=== PATIENT | female | born 1955 | race Two or more races ===

== ENCOUNTER 2019-06-10 15:34 | Inpatient (IN) | payer MEDICARE, OTHER ==
[~2019-06-10] VITALS: Ht 165.1 cm; Wt 69.5 kg
[~2019-06-10 15:34] MED LIST: ACET-1304 PO; ALBU1SYP PO; ALBU2TAB4 PO; ASCO500T11 PO; BUDE0.253 IN; CYA100I PO; DEXT1SUS PO; DILT60TA27 PO; DIPH25CA66 PO; FLUT1SPR5; FURO1TAB33 PO; GABA-339 PO; GUAI600T23 PO; OMEP20TA PO; PRE1T PO; PSEU120T2 PO
[2019-06-10 16:16] LABS: Basophils # (auto) 0 uL; Basophils % (auto) 0.2 % (0.0-2.0); Eosinophils # (auto) 0 uL; Hematocrit 41.6 % (36.0-46.0); Hemoglobin 13.8 g/dL (12.2-16.2); Lymphocytes # (auto) 0.6 uL; Lymphocytes % (auto) 5.5 % (10.0-50.0); Mean Corpuscular Hemoglobin 29.6 pg (28.0-32.0); Mean Corpuscular Hgb Conc. 33.1 g/dL (32.0-36.0); Mean Corpuscular Volume 89.4 fL (80.0-100.0); Monocytes # (auto) 0.1 uL; Monocytes % (auto) 1.4 % (0.0-12.0); Neutrophils % (auto) 92.9 % (37.0-80.0); Platelet Count (auto) 238 10^3/uL (140-450); Red Blood Cells 4.65 10^6/uL (4.0-5.20); Red Cell Distribution Width 16.9 % (11.8-14.3); White Blood Cell 10.8 10^3/uL (4.4-10.8)
[2019-06-10] MEDS ORDERED: SODIUM CHLORIDE 0.9% 1,000 ML IV ONE (16:27)
[2019-06-10] MEDS ORDERED: ALBUTEROL SULF 2.5 MG/0.5ML(0.5%) NEB SOLN NEB ONE (16:30)
[2019-06-10] MEDS ORDERED: IPRATROPIUM BROM 0.5 MG/2.5ML INH SOL NEB ONE (16:30)
[2019-06-10] MEDS ORDERED: methylPREDNISolone SOD SUCC 125 MG/2 ML VL IV ONE (16:30)
[2019-06-10] MEDS ORDERED: cefTRIAXone 1GM/50ML D5W 50 ML IV ONE (16:30)
[2019-06-10 16:31] LABS: Alanine Aminotransferase 37 U/L (13-56); Albumin 3.3 g/dL (3.4-5.0); Anion Gap 6 (5-15); Blood Urea Nitrogen 14 mg/dL (7-18); Calcium 8.4 mg/dL (8.5-10.1); Carbon Dioxide 28 mmol/L (21-32); Chloride 106 mmol/L (98-107); Glucose 121 mg/dL (74-106); Potassium 3.8 mmol/L (3.5-5.1); Sodium 140 mmol/L (136-145)
[2019-06-10 16:36] LABS: Alkaline Phosphatase 129 U/L (45-117); Aspartate Aminotransferase 32 U/L (15-37); BUN/Creatinine Ratio 26.4; Bilirubin, Total 0.9 mg/dL (0.2-1.0); GFR African American 150 mL/min; GFR Non-African American 124 mL/min; Total Protein 6.5 g/dL (6.4-8.2)
[2019-06-10] MEDS ORDERED: HYDROcodone-ACET 5/325MG TAB PO PRN (18:45)
[2019-06-10] MEDS ORDERED: hydrALAZINE HCL 25 MG TAB PO PRN (18:45)
[2019-06-10] MEDS ORDERED: NITROGLYCERIN 0.4 MG SL TAB SL PRN (18:45)
[2019-06-10] MEDS ORDERED: MORPHINE SULF INJ 2 MG/ML SYRINGE 1ML IV PRN ×2 (18:45)
[2019-06-10 21:23] VITALS: BP 143/92
[2019-06-10] MEDS ORDERED: HYDR-4296 PO (21:34)
[2019-06-10] MEDS ORDERED: ATOR20TA PO (21:34)
[2019-06-10 22:00] VITALS: BP 150/80
[2019-06-10] MEDS: GUAIFENESIN 600 MG PO SCH (22:00)
[2019-06-10] MEDS: FLUTICASONE PROP NASAL SPR 0.05 % (50MCG) 16GM SCH (22:00)
[2019-06-10] MEDS: methylPREDNISolone SOD SUCC 40 MG/ML VL IV SCH (22:09)
[2019-06-10] MEDS: BUDESONIDE (INHALATION) 0.5 MG/2 ML NEB NEB SCH ×2 (22:10→22:39)
[2019-06-10] MEDS: IPRATROPIUM BROM 0.5 MG/2.5ML INH SOL NEB SCH ×2 (22:10→22:43)
[2019-06-10] MEDS: ALBUTEROL SULF 2.5 MG/0.5ML(0.5%) NEB SOLN NEB SCH ×2 (22:10→22:38)
[2019-06-10] MEDS: ATORVASTATIN 20 MG TAB PO SCH (22:10)
[2019-06-10] MEDS: GABAPENTIN 300 MG CAP PO SCH (22:10)
[2019-06-10 23:30] LABS: Urine Bacteria NONE SEEN /hpf (None Seen); Urine Blood Negative /uL (Negative); Urine Specific Gravity 1.022 (1.001-1.035); Urine WBC 1 /hpf (0 - 5)
[2019-06-11] MEDS: ACETAMINOPHEN 500 MG TAB PO PRN ×2 (05:34→15:02)
[2019-06-11 05:39] VITALS: BP 143/77
[2019-06-11] MEDS: ALBUTEROL SULF 2.5 MG/0.5ML(0.5%) NEB SOLN NEB SCH ×5 (06:07→22:00)
[2019-06-11] MEDS: IPRATROPIUM BROM 0.5 MG/2.5ML INH SOL NEB SCH ×5 (06:07→22:00)
[2019-06-11] MEDS: BUDESONIDE (INHALATION) 0.5 MG/2 ML NEB NEB SCH ×2 (06:09→22:00)
[2019-06-11 07:03] LABS: Basophils # (auto) 0 uL; Basophils % (auto) 0.1 % (0.0-2.0); Eosinophils # (auto) 0 uL; Lymphocytes # (auto) 0.9 uL; Lymphocytes % (auto) 9.8 % (10.0-50.0); Mean Corpuscular Hgb Conc. 32.5 g/dL (32.0-36.0); Mean Corpuscular Volume 89.5 fL (80.0-100.0); Monocytes # (auto) 0.1 uL; Monocytes % (auto) 1.2 % (0.0-12.0); Neutrophils # (auto) 7.8 uL; Neutrophils % (auto) 88.9 % (37.0-80.0); Nucleated Red Blood Cells % 0.1 %; Platelet Count (auto) 265 10^3/uL (140-450); Red Blood Cells 4.47 10^6/uL (4.0-5.20); Red Cell Distribution Width 16.8 % (11.8-14.3); White Blood Cell 8.8 10^3/uL (4.4-10.8)
[2019-06-11 07:42] LABS: BUN/Creatinine Ratio 26.1; Calcium 8.7 mg/dL (8.5-10.1); Potassium 4.8 mmol/L (3.5-5.1)
[2019-06-11 09:00] VITALS: BP 164/90
[2019-06-11] MEDS: GUAIFENESIN 600 MG PO SCH ×2 (10:00→22:00)
[2019-06-11] MEDS ORDERED: POTASSIUM EFFERVESENT TAB 25 MEQ PO SCH (10:00)
[2019-06-11] MEDS: methylPREDNISolone SOD SUCC 40 MG/ML VL IV SCH ×2 (10:39→22:01)
[2019-06-11] MEDS: FLUTICASONE PROP NASAL SPR 0.05 % (50MCG) 16GM SCH ×2 (10:40→22:00)
[2019-06-11] MEDS: GABAPENTIN 300 MG CAP PO SCH ×2 (10:41→22:07)
[2019-06-11] MEDS: dilTIAZem HCL 60 MG TAB PO SCH (10:41)
[2019-06-11] MEDS: FAMOTIDINE 20 MG TAB PO SCH (10:41)
[2019-06-11] MEDS: FUROSEMIDE 20 MG TAB PO SCH (10:41)
[2019-06-11 13:00] VITALS: BP 17/61
[2019-06-11] MEDS: ONDANSETRON HCL 4 MG/2 ML VIAL IV PRN ×2 (15:01→19:03)
[2019-06-11] MEDS ORDERED: guaiFENesin-DM 100/10mg/5ml SYR PO PRN (15:30)
[2019-06-11] MEDS ORDERED: AZITHROMYCIN 250 MG TAB PO ONE (15:30)
[2019-06-11 17:00] VITALS: BP 130/79
[2019-06-11] MEDS: hydrALAZINE HCL 25 MG TAB PO SCH ×2 (18:43→18:44)
[2019-06-11] MEDS: ATORVASTATIN 20 MG TAB PO SCH (22:05)
[2019-06-11 22:11] VITALS: BP 136/58
[2019-06-12] MEDS: ALBUTEROL SULF 2.5 MG/0.5ML(0.5%) NEB SOLN NEB SCH ×6 (02:34→22:32)
[2019-06-12] MEDS: IPRATROPIUM BROM 0.5 MG/2.5ML INH SOL NEB SCH ×6 (02:34→22:32)
[2019-06-12 05:17] VITALS: BP 117/70
[2019-06-12] MEDS: hydrALAZINE HCL 25 MG TAB PO SCH ×4 (05:58→22:51)
[2019-06-12] MEDS: BUDESONIDE (INHALATION) 0.5 MG/2 ML NEB NEB SCH ×2 (06:40→22:32)
[2019-06-12 09:35] VITALS: BP 141/86
[2019-06-12] MEDS: GUAIFENESIN 600 MG PO SCH ×2 (10:00→22:52)
[2019-06-12] MEDS: FLUTICASONE PROP NASAL SPR 0.05 % (50MCG) 16GM SCH ×2 (10:30→22:00)
[2019-06-12] MEDS: GABAPENTIN 300 MG CAP PO SCH ×2 (10:51→22:07)
[2019-06-12] MEDS: AZITHROMYCIN 250 MG TAB PO SCH (10:51)
[2019-06-12] MEDS: ONDANSETRON HCL 4 MG/2 ML VIAL IV PRN (10:52)
[2019-06-12] MEDS: FAMOTIDINE 20 MG TAB PO SCH (10:53)
[2019-06-12] MEDS: FUROSEMIDE 20 MG TAB PO SCH (10:54)
[2019-06-12] MEDS: dilTIAZem HCL 60 MG TAB PO SCH (10:55)
[2019-06-12] MEDS ORDERED: methylPREDNISolone SOD SUCC 125 MG/2 ML VL IV ONE (11:15)
[2019-06-12 13:00] VITALS: BP 148/93
[2019-06-12] MEDS ORDERED: LORazepam 0.5 MG TAB PO PRN (14:00)
[2019-06-12 17:25] VITALS: BP 122/70
[2019-06-12 20:00] VITALS: BP 122/70
[2019-06-12 22:00] VITALS: BP 141/79
[2019-06-12] MEDS: methylPREDNISolone SOD SUCC 40 MG/ML VL IV SCH (22:00)
[2019-06-12] MEDS: ATORVASTATIN 20 MG TAB PO SCH (22:07)
[2019-06-13 05:00] VITALS: BP 156/93
[2019-06-13] MEDS: ALBUTEROL SULF 2.5 MG/0.5ML(0.5%) NEB SOLN NEB SCH ×5 (06:30→22:36)
[2019-06-13] MEDS: IPRATROPIUM BROM 0.5 MG/2.5ML INH SOL NEB SCH ×5 (06:30→22:36)
[2019-06-13] MEDS: BUDESONIDE (INHALATION) 0.5 MG/2 ML NEB NEB SCH ×2 (06:31→22:36)
[2019-06-13 09:00] VITALS: BP 157/86
[2019-06-13] MEDS: GUAIFENESIN 600 MG PO SCH ×2 (10:00→21:47)
[2019-06-13] MEDS: FLUTICASONE PROP NASAL SPR 0.05 % (50MCG) 16GM SCH ×2 (10:39→21:46)
[2019-06-13] MEDS: methylPREDNISolone SOD SUCC 40 MG/ML VL IV SCH ×2 (10:39→21:46)
[2019-06-13] MEDS: dilTIAZem HCL 60 MG TAB PO SCH (10:40)
[2019-06-13] MEDS: FAMOTIDINE 20 MG TAB PO SCH (10:40)
[2019-06-13] MEDS: AZITHROMYCIN 250 MG TAB PO SCH (10:41)
[2019-06-13] MEDS: GABAPENTIN 300 MG CAP PO SCH ×2 (10:42→21:47)
[2019-06-13] MEDS: FUROSEMIDE 20 MG TAB PO SCH (10:42)
[2019-06-13] MEDS: hydrALAZINE HCL 25 MG TAB PO SCH ×3 (12:00→23:58)
[2019-06-13 13:00] VITALS: BP 143/82
[2019-06-13] MEDS: ONDANSETRON HCL 4 MG/2 ML VIAL IV PRN ×2 (13:39→20:06)
[2019-06-13 17:00] VITALS: BP 131/73
[2019-06-13 19:05] VITALS: BP 131/73
[2019-06-13] MEDS: ATORVASTATIN 20 MG TAB PO SCH (21:47)
[2019-06-13 22:00] VITALS: BP 144/75
[2019-06-14 05:04] VITALS: BP 148/90
[2019-06-14] MEDS: hydrALAZINE HCL 25 MG TAB PO SCH ×3 (06:00→18:37)
[2019-06-14] MEDS: IPRATROPIUM BROM 0.5 MG/2.5ML INH SOL NEB SCH ×5 (06:00→22:53)
[2019-06-14] MEDS: ALBUTEROL SULF 2.5 MG/0.5ML(0.5%) NEB SOLN NEB SCH ×5 (06:00→22:53)
[2019-06-14 06:43] LABS: Basophils # (auto) 0 uL; Basophils % (auto) 0.1 % (0.0-2.0); Eosinophils # (auto) 0 uL; Hematocrit 38.9 % (36.0-46.0); Hemoglobin 12.7 g/dL (12.2-16.2); Lymphocytes # (auto) 0.7 uL; Lymphocytes % (auto) 6.7 % (10.0-50.0); Mean Corpuscular Hemoglobin 29.3 pg (28.0-32.0); Mean Corpuscular Hgb Conc. 32.6 g/dL (32.0-36.0); Mean Corpuscular Volume 89.9 fL (80.0-100.0); Monocytes # (auto) 0.4 uL; Monocytes % (auto) 3.4 % (0.0-12.0); Neutrophils % (auto) 89.8 % (37.0-80.0); Nucleated Red Blood Cells % 0.1 %; Platelet Count (auto) 231 10^3/uL (140-450); Red Blood Cells 4.33 10^6/uL (4.0-5.20); White Blood Cell 11.1 10^3/uL (4.4-10.8)
[2019-06-14 07:03] LABS: Potassium 4.4 mmol/L (3.5-5.1)
[2019-06-14 07:07] LABS: BUN/Creatinine Ratio 34.8; Calcium 8.8 mg/dL (8.5-10.1)
[2019-06-14 08:18] VITALS: BP 124/64
[2019-06-14] MEDS: GUAIFENESIN 600 MG PO SCH ×2 (10:00→22:37)
[2019-06-14] MEDS: BUDESONIDE (INHALATION) 0.5 MG/2 ML NEB NEB SCH ×2 (10:10→18:02)
[2019-06-14] MEDS: FAMOTIDINE 20 MG TAB PO SCH (10:16)
[2019-06-14] MEDS: dilTIAZem HCL 60 MG TAB PO SCH (10:17)
[2019-06-14] MEDS: AZITHROMYCIN 250 MG TAB PO SCH (10:17)
[2019-06-14] MEDS: FUROSEMIDE 20 MG TAB PO SCH (10:17)
[2019-06-14] MEDS: GABAPENTIN 300 MG CAP PO SCH ×2 (10:18→22:37)
[2019-06-14] MEDS: ONDANSETRON HCL 4 MG/2 ML VIAL IV PRN ×3 (10:18→20:41)
[2019-06-14] MEDS: methylPREDNISolone SOD SUCC 40 MG/ML VL IV SCH ×2 (10:18→22:37)
[2019-06-14] MEDS: FLUTICASONE PROP NASAL SPR 0.05 % (50MCG) 16GM SCH ×2 (10:19→22:38)
[2019-06-14 13:27] VITALS: BP 137/71
[2019-06-14 17:13] VITALS: BP 145/70
[2019-06-14 22:00] VITALS: BP 157/90
[2019-06-14 22:35] VITALS: BP 150/90
[2019-06-14] MEDS: cefTAZidime 1 GM in SODIUM CHL 0.9% 50 ML IV SCH (22:36)
[2019-06-14] MEDS: ATORVASTATIN 20 MG TAB PO SCH (22:36)
[2019-06-14] MEDS: ACETYLCYSTEINE 10 %(100MG/ML) SOL 4ML NEB SCH (22:53)
[2019-06-15] VITALS (7 sets, daily range): BP systolic 124–162; BP diastolic 65–87
[2019-06-15] MEDS: hydrALAZINE HCL 25 MG TAB PO SCH ×5 (00:59→23:58)
[2019-06-15] MEDS: ACETAMINOPHEN 500 MG TAB PO PRN ×2 (01:36→17:41)
[2019-06-15] MEDS: hydrALAZINE HCL 20 MG/ML VL IV PRN (04:01)
[2019-06-15] MEDS: cefTAZidime 1 GM in SODIUM CHL 0.9% 50 ML IV SCH (05:15)
[2019-06-15] MEDS: IPRATROPIUM BROM 0.5 MG/2.5ML INH SOL NEB SCH ×5 (06:09→22:18)
[2019-06-15] MEDS: ACETYLCYSTEINE 10 %(100MG/ML) SOL 4ML NEB SCH ×3 (06:09→22:19)
[2019-06-15] MEDS: ALBUTEROL SULF 2.5 MG/0.5ML(0.5%) NEB SOLN NEB SCH ×5 (06:09→22:18)
[2019-06-15 06:25] LABS: BUN/Creatinine Ratio 36.4; Calcium 8.2 mg/dL (8.5-10.1); Hematocrit 36.6 % (36.0-46.0); Hemoglobin 12.2 g/dL (12.2-16.2); Mean Corpuscular Hemoglobin 29.8 pg (28.0-32.0); Mean Corpuscular Hgb Conc. 33.4 g/dL (32.0-36.0); Mean Corpuscular Volume 89.4 fL (80.0-100.0); Platelet Count (auto) 206 10^3/uL (140-450); Potassium 4.3 mmol/L (3.5-5.1); Red Blood Cells 4.09 10^6/uL (4.0-5.20); Red Cell Distribution Width 17.2 % (11.8-14.3); White Blood Cell 9.7 10^3/uL (4.4-10.8)
[2019-06-15 06:33] LABS: Basophils % (manual) 0 (0.0-2.0); Blast Cells 0; Eosinophils % (manual) 0 (0-7); Metamyelocytes % 0; Myelocytes % 0; Promyelocytes % 0; Reactive Lymphocytes 0
[2019-06-15 07:32] LABS: Band Neutrophils % (manual) 1; Lymphocytes % (manual) 5 (10.0-50.0); Monocytes % (manual) 6 (0-12)
[2019-06-15] MEDS: methylPREDNISolone SOD SUCC 40 MG/ML VL IV SCH ×2 (08:06→21:12)
[2019-06-15] MEDS: FAMOTIDINE 20 MG TAB PO SCH (08:08)
[2019-06-15] MEDS: dilTIAZem HCL 60 MG TAB PO SCH (08:08)
[2019-06-15] MEDS: GABAPENTIN 300 MG CAP PO SCH ×2 (08:09→21:13)
[2019-06-15] MEDS: FUROSEMIDE 20 MG TAB PO SCH (08:09)
[2019-06-15] MEDS: AZITHROMYCIN 250 MG TAB PO SCH (08:10)
[2019-06-15] MEDS: FLUTICASONE PROP NASAL SPR 0.05 % (50MCG) 16GM SCH ×2 (08:10→22:00)
[2019-06-15] MEDS: GUAIFENESIN 600 MG PO SCH ×2 (08:12→21:12)
[2019-06-15] MEDS: BUDESONIDE (INHALATION) 0.5 MG/2 ML NEB NEB SCH ×2 (10:46→22:19)
[2019-06-15] MEDS ORDERED: FLORASTOR (S. BOULARDII) 250 MG CAP PO ONE (12:03)
[2019-06-15] MEDS: CEFEPIME 2 GM in SODIUM CHL 0.9% 50 ML IV SCH ×2 (13:55→21:11)
[2019-06-15] MEDS: ATORVASTATIN 20 MG TAB PO SCH (21:12)
[2019-06-15] MEDS: ONDANSETRON HCL 4 MG/2 ML VIAL IV PRN (21:13)
[2019-06-16] MEDS: ACETAMINOPHEN 500 MG TAB PO PRN (02:06)
[2019-06-16] MEDS: ONDANSETRON HCL 4 MG/2 ML VIAL IV PRN ×3 (02:06→19:39)
[2019-06-16 05:00] VITALS: BP 144/89
[2019-06-16] MEDS: CEFEPIME 2 GM in SODIUM CHL 0.9% 50 ML IV SCH ×3 (05:57→21:37)
[2019-06-16] MEDS: hydrALAZINE HCL 25 MG TAB PO SCH ×3 (05:59→17:17)
[2019-06-16] MEDS: IPRATROPIUM BROM 0.5 MG/2.5ML INH SOL NEB SCH ×5 (06:40→23:11)
[2019-06-16] MEDS: BUDESONIDE (INHALATION) 0.5 MG/2 ML NEB NEB SCH ×2 (06:41→18:43)
[2019-06-16] MEDS: ALBUTEROL SULF 2.5 MG/0.5ML(0.5%) NEB SOLN NEB SCH ×5 (06:41→23:11)
[2019-06-16] MEDS: ACETYLCYSTEINE 10 %(100MG/ML) SOL 4ML NEB SCH ×3 (06:41→23:11)
[2019-06-16 06:59] LABS: BUN/Creatinine Ratio 40.7; Calcium 8.5 mg/dL (8.5-10.1); Potassium 4.7 mmol/L (3.5-5.1)
[2019-06-16 09:00] VITALS: BP 157/81
[2019-06-16] MEDS: GABAPENTIN 300 MG CAP PO SCH ×2 (09:34→21:38)
[2019-06-16] MEDS: methylPREDNISolone SOD SUCC 40 MG/ML VL IV SCH ×2 (09:34→21:37)
[2019-06-16] MEDS: dilTIAZem HCL 60 MG TAB PO SCH (09:35)
[2019-06-16] MEDS: FLORASTOR (S. BOULARDII) 250 MG CAP PO SCH (09:35)
[2019-06-16] MEDS: FAMOTIDINE 20 MG TAB PO SCH ×2 (09:35→09:42)
[2019-06-16] MEDS: FUROSEMIDE 20 MG TAB PO SCH (09:36)
[2019-06-16] MEDS: GUAIFENESIN 600 MG PO SCH ×2 (09:37→21:37)
[2019-06-16] MEDS: FLUTICASONE PROP NASAL SPR 0.05 % (50MCG) 16GM SCH ×2 (09:41→22:00)
[2019-06-16] MEDS ORDERED: IPRATROPIUM BROM 0.5 MG/2.5ML INH SOL NEB PRN (10:45)
[2019-06-16] MEDS ORDERED: ACETYLCYSTEINE 10 %(100MG/ML) SOL 4ML NEB PRN (10:45)
[2019-06-16] MEDS ORDERED: ALBUTEROL SULF 2.5 MG/0.5ML(0.5%) NEB SOLN NEB PRN (10:45)
[2019-06-16 13:00] VITALS: BP 110/59
[2019-06-16 17:00] VITALS: BP 149/72
[2019-06-16] MEDS: ATORVASTATIN 20 MG TAB PO SCH (21:37)
[2019-06-16 22:00] VITALS: BP 127/71
[2019-06-17] VITALS (9 sets, daily range): BP systolic 104–175; BP diastolic 39–95
[2019-06-17] MEDS: hydrALAZINE HCL 25 MG TAB PO SCH ×5 (01:08→22:13)
[2019-06-17] MEDS: ACETAMINOPHEN 500 MG TAB PO PRN (01:20)
[2019-06-17] MEDS: hydrALAZINE HCL 20 MG/ML VL IV PRN (04:40)
[2019-06-17] MEDS: CEFEPIME 2 GM in SODIUM CHL 0.9% 50 ML IV SCH ×3 (05:14→22:14)
[2019-06-17] MEDS: ACETYLCYSTEINE 10 %(100MG/ML) SOL 4ML NEB SCH ×3 (06:09→21:50)
[2019-06-17] MEDS: IPRATROPIUM BROM 0.5 MG/2.5ML INH SOL NEB SCH ×5 (06:09→21:50)
[2019-06-17] MEDS: ALBUTEROL SULF 2.5 MG/0.5ML(0.5%) NEB SOLN NEB SCH ×5 (06:09→21:50)
[2019-06-17] MEDS: BUDESONIDE (INHALATION) 0.5 MG/2 ML NEB NEB SCH ×2 (06:09→21:50)
[2019-06-17] MEDS: ONDANSETRON HCL 4 MG/2 ML VIAL IV PRN ×2 (09:02→20:24)
[2019-06-17] MEDS: FLORASTOR (S. BOULARDII) 250 MG CAP PO SCH (09:14)
[2019-06-17] MEDS: FAMOTIDINE 20 MG TAB PO SCH ×2 (09:14→09:17)
[2019-06-17] MEDS: GABAPENTIN 300 MG CAP PO SCH ×2 (09:14→22:05)
[2019-06-17] MEDS: FUROSEMIDE 20 MG TAB PO SCH (09:15)
[2019-06-17] MEDS: methylPREDNISolone SOD SUCC 40 MG/ML VL IV SCH ×3 (09:15→22:04)
[2019-06-17] MEDS: dilTIAZem HCL 60 MG TAB PO SCH (09:15)
[2019-06-17] MEDS: GUAIFENESIN 600 MG PO SCH ×2 (09:15→22:00)
[2019-06-17] MEDS: FLUTICASONE PROP NASAL SPR 0.05 % (50MCG) 16GM SCH ×2 (09:17→22:14)
[2019-06-17] MEDS ORDERED: ACETAMINOPHEN 500 MG TAB PO PRN (10:45)
[2019-06-17] MEDS: ATORVASTATIN 20 MG TAB PO SCH (22:05)
[2019-06-18 05:35] VITALS: BP 154/93
[2019-06-18] MEDS: ALBUTEROL SULF 2.5 MG/0.5ML(0.5%) NEB SOLN NEB SCH ×3 (06:10→14:26)
[2019-06-18] MEDS: IPRATROPIUM BROM 0.5 MG/2.5ML INH SOL NEB SCH ×3 (06:10→14:26)
[2019-06-18] MEDS: ACETYLCYSTEINE 10 %(100MG/ML) SOL 4ML NEB SCH ×2 (06:10→14:26)
[2019-06-18] MEDS: CEFEPIME 2 GM in SODIUM CHL 0.9% 50 ML IV SCH ×2 (06:56→13:36)
[2019-06-18] MEDS: methylPREDNISolone SOD SUCC 40 MG/ML VL IV SCH ×2 (07:00→13:31)
[2019-06-18] MEDS: hydrALAZINE HCL 25 MG TAB PO SCH ×2 (07:01→12:00)
[2019-06-18] MEDS: dilTIAZem HCL 60 MG TAB PO SCH (07:58)
[2019-06-18 09:00] VITALS: BP 167/91
[2019-06-18] MEDS: FLORASTOR (S. BOULARDII) 250 MG CAP PO SCH (09:36)
[2019-06-18] MEDS: FAMOTIDINE 20 MG TAB PO SCH (09:37)
[2019-06-18] MEDS: FUROSEMIDE 20 MG TAB PO SCH (09:37)
[2019-06-18] MEDS: GUAIFENESIN 600 MG PO SCH (09:37)
[2019-06-18] MEDS: GABAPENTIN 300 MG CAP PO SCH (09:37)
[2019-06-18] MEDS: FLUTICASONE PROP NASAL SPR 0.05 % (50MCG) 16GM SCH (09:38)
[2019-06-18] MEDS: BUDESONIDE (INHALATION) 0.5 MG/2 ML NEB NEB SCH (10:23)
[2019-06-18] MEDS ORDERED: OMEP20TA PO (12:13)
[2019-06-18 13:00] VITALS: BP 120/62
[2019-06-18] MEDS: ONDANSETRON HCL 4 MG/2 ML VIAL IV PRN (13:31)
[2019-06-18 14:26] VITALS: BP 120/62
== END 2019-06-18 15:20 | disposition home health service (06) | DRG 177 ==
LOC: EDBD 15:34 → ER 15:34 → TELE-EAST 15:35
PROVIDERS: ADMIT Nurse Practitioner Acute Care; ATTEND Internal Medicine
DX: J15.1 Pneumonia due to Pseudomonas (principal); J96.21 Acute and chronic respiratory failure with hypoxia; J98.11 Atelectasis; I50.42 Chronic combined systolic (congestive) and diastolic (congestive) heart failure; J43.9 Emphysema, unspecified; J20.9 Acute bronchitis, unspecified; F41.9 Anxiety disorder, unspecified; E78.5 Hyperlipidemia, unspecified; I11.0 Hypertensive heart disease with heart failure; R19.7 Diarrhea, unspecified; Z79.51 Long term (current) use of inhaled steroids; Z82.49 Family history of ischemic heart disease and other diseases of the circulatory system; Z86.73 Personal history of transient ischemic attack (TIA), and cerebral infarction without residual deficits; Z87.891 Personal history of nicotine dependence; Z83.3 Family history of diabetes mellitus; Z85.41 Personal history of malignant neoplasm of cervix uteri; Z85.44 Personal history of malignant neoplasm of other female genital organs; Z90.49 Acquired absence of other specified parts of digestive tract; Z98.51 Tubal ligation status; Z90.721 Acquired absence of ovaries, unilateral; Z88.2 Allergy status to sulfonamides; Z88.5 Allergy status to narcotic agent; Z88.8 Allergy status to other drugs, medicaments and biological substances
CPT/HCPCS: 36415; 70450; 71045; 71046; 80048; 80053; 81001; 82962; 83735; 84132; 84443; 84484; 85007; 85025; 85027; 87070; 87077; 87081; 87186; 87205; 93005; 93306; 94640; 94667; 94668; G0378; J0696; J2405

== ENCOUNTER 2019-07-11 21:46 | Emergency (ER) | payer MEDICARE, OTHER ==
[~2019-07-11] VITALS: Ht 167.6 cm; Wt 64.4 kg
[~2019-07-11 21:46] MED LIST changes: +ATOR20TA PO; +HYDR-4296 PO
[2019-07-12] MEDS ORDERED: IPRATROPIUM BROM 0.5 MG/2.5ML INH SOL NEB ONE ×2 (02:15→08:45)
[2019-07-12] MEDS ORDERED: ALBUTEROL SULF 2.5 MG/0.5ML(0.5%) NEB SOLN NEB ONE ×2 (02:15→08:45)
[2019-07-12 08:00] VITALS: BP 130/77
== END 2019-07-12 05:20 | disposition home or self-care (01) ==
LOC: EDBD 21:46 → ER 21:46
DX: S00.93XA Contusion of unspecified part of head, initial encounter (principal); S80.12XA Contusion of left lower leg, initial encounter; J20.9 Acute bronchitis, unspecified; J44.0 Chronic obstructive pulmonary disease with (acute) lower respiratory infection; I11.0 Hypertensive heart disease with heart failure; I50.9 Heart failure, unspecified; I25.2 Old myocardial infarction; X58.XXXA Exposure to other specified factors, initial encounter; Y93.89 Activity, other specified; Y92.89 Other specified places as the place of occurrence of the external cause; Y99.8 Other external cause status
CPT/HCPCS: 70450; 71045; 72125; 73590; 94640; 99285; J7644

== ENCOUNTER 2019-08-09 22:02 | Inpatient (IN) | payer MEDICARE, OTHER ==
[~2019-08-09] VITALS: Ht 172.7 cm; Wt 72.6 kg
[2019-08-09] MEDS ORDERED: ACETAMINOPHEN 325 MG TAB PO ONE (22:15)
[2019-08-09] MEDS ORDERED: ACETAMINOPHEN 650 MG RECT SUPP PR ONE ×2 (23:04→23:15)
[2019-08-09 23:19] LABS: Urine Bacteria NONE SEEN /hpf (None Seen); Urine Blood 3+ /uL (Negative); Urine Specific Gravity 1.022 (1.001-1.035); Urine WBC 10 /hpf (0 - 5)
[2019-08-10 00:06] LABS: Albumin 2.1 g/dL (3.4-5.0); BUN/Creatinine Ratio 47.5; Calcium 8.7 mg/dL (8.5-10.1); Magnesium 2.4 mg/dL (1.6-2.6); Potassium 3.6 mmol/L (3.5-5.1)
[2019-08-10 00:11] LABS: Bilirubin, Total 2.4 mg/dL (0.2-1.0); Total Protein 5.9 g/dL (6.4-8.2)
[2019-08-10 01:05] LABS: Basophils # (auto) 0.1 10 ^3/uL (0-0.2); Basophils % (auto) 0.5 % (0.0-2.0); Eosinophils # (auto) 0.2 10 ^3/uL (0-0.8); Eosinophils % (auto) 0.8 % (0.0-7.0); Hematocrit 40.5 % (36.0-46.0); Hemoglobin 13.1 g/dL (12.2-16.2); Lymphocytes # (auto) 0.3 10 ^3/uL (0.4-5.4); Lymphocytes % (auto) 1.4 % (10.0-50.0); Mean Corpuscular Hemoglobin 29.3 pg (28.0-32.0); Mean Corpuscular Hgb Conc. 32.3 g/dL (32.0-36.0); Mean Corpuscular Volume 90.8 fL (80.0-100.0); Monocytes # (auto) 0.6 10 ^3/uL (0-1.3); Monocytes % (auto) 2.7 % (0.0-12.0); Neutrophils # (auto) 19.7 10 ^3/uL (1.6-8.6); Neutrophils % (auto) 94.6 % (37.0-80.0); Nucleated Red Blood Cells % 0.1 %; Red Blood Cells 4.46 10^6/uL (4.0-5.20); Red Cell Distribution Width 18.1 % (11.8-14.3); White Blood Cell 20.8 10^3/uL (4.4-10.8)
[2019-08-10 01:13] LABS: INR 1.17 (0.9-1.15)
[2019-08-10 01:15] LABS: Platelet Count (auto) 17 10^3/uL (140-450)
[2019-08-10] MEDS ORDERED: SODIUM CHLORIDE 0.9% 1,000 ML IV ONE ×2 (01:15→02:15)
[2019-08-10] MEDS ORDERED: AZITHROMYCIN 500MG/ 250ML 250 ML IV ONE (01:15)
[2019-08-10] MEDS ORDERED: cefTRIAXone 1GM/50ML D5W 50 ML IV ONE (01:15)
[2019-08-10] MEDS ORDERED: diphenhdrAMINE HCL 25 MG CAP PO PRN (03:15)
[2019-08-10] MEDS ORDERED: ALBUTEROL SULF 2.5 MG/0.5ML(0.5%) NEB SOLN NEB PRN (03:15)
[2019-08-10] MEDS ORDERED: METOPROLOL TARTRATE 1MG/1ML-5ML VIAL IV ONE (05:30)
[2019-08-10 05:45] VITALS: BP 110/80
[2019-08-10] MEDS ORDERED: hydrALAZINE HCL 25 MG TAB PO SCH (06:00)
[2019-08-10] MEDS ORDERED: LORazepam 2MG/ML-1ML VIAL ONE (06:10)
[2019-08-10] MEDS ORDERED: LORazepam 2MG/ML-1ML VIAL IV ONE (06:15)
[2019-08-10] MEDS ORDERED: FUROSEMIDE 20 MG TAB PO SCH (10:00)
[2019-08-10] MEDS ORDERED: CYANOCOBALAMIN (B-12) 1000 MCG/1 ML VIAL SUBCUT SCH (10:00)
[2019-08-10] MEDS ORDERED: PANTOPRAZOLE 40 MG TAB PO SCH (10:00)
[2019-08-10] MEDS ORDERED: GABAPENTIN 300 MG CAP PO SCH (10:00)
[2019-08-10] MEDS ORDERED: dilTIAZem HCL 180MG ER CAP PO SCH (10:00)
[2019-08-10] MEDS ORDERED: ATORVASTATIN 20 MG TAB PO SCH (10:00)
[2019-08-10] MEDS ORDERED: predniSONE 5 MG TAB PO SCH (10:00)
[2019-08-11] MEDS ORDERED: cefTRIAXone 1GM/50ML D5W 50 ML IV SCH (01:00)
== END 2019-08-10 06:24 | disposition short-term general hospital (02) | DRG 871 ==
LOC: EDBD 22:02 → ER 22:07 → TELE 22:08
PROVIDERS: ADMIT Hospitalist; ATTEND Internal Medicine Nephrology
DX: A41.9 Sepsis, unspecified organism (principal); I21.4 Non-ST elevation (NSTEMI) myocardial infarction; N39.0 Urinary tract infection, site not specified; D69.6 Thrombocytopenia, unspecified; E11.9 Type 2 diabetes mellitus without complications; I11.0 Hypertensive heart disease with heart failure; I50.9 Heart failure, unspecified; I25.2 Old myocardial infarction; Z90.49 Acquired absence of other specified parts of digestive tract; Z98.51 Tubal ligation status; Z79.899 Other long term (current) drug therapy; Z86.73 Personal history of transient ischemic attack (TIA), and cerebral infarction without residual deficits; Z88.1 Allergy status to other antibiotic agents; Z88.0 Allergy status to penicillin; Z88.2 Allergy status to sulfonamides; Z88.8 Allergy status to other drugs, medicaments and biological substances; Z87.891 Personal history of nicotine dependence; Z03.818 Encounter for observation for suspected exposure to other biological agents ruled out
CPT/HCPCS: 36415; 36600; 70450; 71045; 80053; 81001; 82728; 82805; 83605; 83735; 83880; 84484; 85025; 85610; 85730; 86850; 86900; 86901; 87040; 87070; 87077; 87086; 87088; 87186; 87804; 87880; 93005; G0378; J0696